=== PATIENT | female | born 1990 | race Caucasian/White ===

== ENCOUNTER 2018-04-10 03:02 | Emergency (ER) | payer OTHER ==
[~2018-04-10] VITALS: Ht 175.3 cm; Wt 91.1 kg
[2018-04-10 03:04] VITALS: BP 133/83
[2018-04-10] MEDS ORDERED: BCP (03:08)
[2018-04-10] MEDS ORDERED: DEXAMETHASONE 4 MG TABLET ONE (04:14)
[2018-04-10] MEDS ORDERED: hydrOXyzine 50MG TABLET ONE (04:14)
[2018-04-10] MEDS ORDERED: DEXAMETHASONE 4 MG TABLET PO ONE (04:30)
== END 2018-04-10 05:33 | disposition home or self-care (01) ==
LOC: ED 05:28
DX: L50.0 Allergic urticaria (principal); R42 Dizziness and giddiness
CPT/HCPCS: 99283; Q0177

== ENCOUNTER 2019-04-24 04:14 | Emergency (ER) | payer OTHER ==
[~2019-04-24] VITALS: Ht 175.3 cm; Wt 78.0 kg
[~2019-04-24 04:14] MED LIST: BCP
--- NOTE | 2019-04-24 04:45 | NUR ---
assessment made. chart up for MD to see.
--- NOTE | 2019-04-24 04:45 | NUR ---
PA at bedside.
[2019-04-24] MEDS ORDERED: DIPH,PERTUSS(ACELL),TET VAC/PF 0.5 ML IM-VACC ONE ×2 (05:00→05:03)
--- NOTE | 2019-04-24 05:14 | NUR ---
tetanus shot given.
--- NOTE | 2019-04-24 05:34 | NUR ---
blood drawn by shrimp pond laborer. patient discharged with instruction. verbalized understanding.
[2019-04-24 05:35] VITALS: BP 127/75
== END 2019-04-24 05:41 | disposition home or self-care (01) ==
LOC: ED 05:35
DX: Z77.21 Contact with and (suspected) exposure to potentially hazardous body fluids (principal)
CPT/HCPCS: 36415; 86706; 86803; 87340; 87389; 90471; 90715

== ENCOUNTER 2019-08-07 01:37 | Emergency (ER) | payer OTHER ==
[~2019-08-07] VITALS: Ht 175.3 cm; Wt 94.0 kg
[2019-08-07 01:40] VITALS: BP 126/75
== END 2019-08-07 02:22 | disposition home or self-care (01) ==
LOC: ED 02:15
DX: S69.91XA Unspecified injury of right wrist, hand and finger(s), initial encounter (principal); W46.1XXA Contact with contaminated hypodermic needle, initial encounter; Y93.89 Activity, other specified; Y92.69 Other specified industrial and construction area as the place of occurrence of the external cause; Y99.8 Other external cause status
CPT/HCPCS: 36415; 86705; 86706; 86803; 87340; 87806; 99283; G0475

== ENCOUNTER 2019-12-24 20:37 | Emergency (ER) | payer OTHER ==
[~2019-12-24] VITALS: Ht 175.3 cm; Wt 85.0 kg
--- NOTE | 2019-12-24 21:28 | NUR ---
PT AMBULATORY TO ROOM AT 2120.
[2019-12-24 21:53] VITALS: BP 103/55
--- NOTE | 2019-12-24 21:54 | NUR ---
PT SITTING IN BED ON PHONE, RESPIRATIONS EVEN AND UNLABORED. CONNECTED TO BP, AND O2 MONITORS. NO SIGNS OF DISTRESS, CALL LIGHT IN REACH, BEDRAILS UP X2. WILL CONTINUE TO MONITOR.
[2019-12-24 22:13] LABS: MICROSCOPIC INDICATED
--- NOTE | 2019-12-24 22:37 | NUR ---
PT CONDITION UNCHANGED. WILL CONTINUE TO MONITOR.
[2019-12-24 22:47] LABS: CLUE CELLS NONE SEEN (NONE SEEN); WET PREP WBCS FEW (FEW)
--- NOTE | 2019-12-24 23:01 | NUR ---
PT LAYING IN BED, ALL NEEDS MET AT THIS TIME.
== END 2019-12-24 23:37 | disposition home or self-care (01) ==
LOC: ED 23:17
DX: O26.892 Other specified pregnancy related conditions, second trimester (principal); Z3A.15 15 weeks gestation of pregnancy
CPT/HCPCS: 76805; 81001; 87086; 87210; 87808; 99284

== ENCOUNTER 2020-04-20 10:07 | Emergency (ER) | payer OTHER ==
[~2020-04-20] VITALS: Ht 175.3 cm; Wt 97.8 kg
[2020-04-20 10:12] VITALS: BP 109/68
--- NOTE | 2020-04-20 10:12 | NUR ---
PROGRAMS MANAGER: PT REPORTS 34 WEEKS . CALLED L&D, SPOKE WITH DOMINGO, L&D REQUEST THAT PT BE CHECKED IN TO ER FOR EVAL DUE TO SOB COMPLAINT AND THEY CAN COME DOWN AND ASSESS PT PER ERP REQUEST.
[2020-04-20 11:14] LABS: BASOPHILS % (AUTO) 0 % (0-1); EOSINOPHILS % (AUTO) 2 % (1-7); LYMPHOCYTES % (AUTO) 13 % (22-44); MEAN CORPUSCULAR HEMOGLOBIN 31.9 pg (27.0-34.8); MEAN CORPUSCULAR HGB CONC 34.7 g/dL (32.4-35.8); MEAN PLATELET VOLUME 8.7 fL (7.4-10.4); MONOCYTES % (AUTO) 7 % (2-9); NEUTROPHILS % (AUTO) 78 % (42-75); PLATELET COUNT 256 x10^3/uL (130-400); RED BLOOD COUNT 3.71 x10^6/uL (3.82-5.3); RED CELL DISTRIBUTION WIDTH 12.8 % (9.6-15.2)
[2020-04-20 11:17] LABS: MD NO
[2020-04-20 11:27] LABS: ALANINE AMINOTRANSFERASE 33 U/L (12-78); ALBUMIN 2.8 g/dL (3.4-5.0); ANION GAP 6 mmol/L (5-15); CHLORIDE 108 mmol/L (98-107); CREATININE 0.73 mg/dL (0.55-1.02)
[2020-04-20 11:29] LABS: ALKALINE PHOSPHATASE 77 U/L (45-117); BILIRUBIN,TOTAL 0.2 mg/dL (0.2-1.0); TOTAL PROTEIN 6.6 g/dL (6.4-8.2)
== END 2020-04-20 13:30 | disposition home or self-care (01) ==
LOC: ED 13:28
DX: O26.893 Other specified pregnancy related conditions, third trimester (principal); Z20.828 Contact with and (suspected) exposure to other viral communicable diseases; R00.2 Palpitations; R06.02 Shortness of breath; Z3A.32 32 weeks gestation of pregnancy; Z90.89 Acquired absence of other organs
CPT/HCPCS: 71045; 80053; 85025; 87635; 93005; 99285

== ENCOUNTER 2021-01-24 14:38 | Emergency (ER) | payer OTHER ==
[~2021-01-24] VITALS: Ht 175.3 cm; Wt 80.1 kg
[2021-01-24] MEDS ORDERED: PROPARACAINE OPHTH 0.5%, 15ML ONE (14:54)
[2021-01-24] MEDS ORDERED: FLUORESCEIN OPHTHALMIC 1 MG STRIP ONE (14:54)
[2021-01-24] MEDS ORDERED: FLUORESCEIN OPHTHALMIC 1 MG STRIP RIGHTEYE ONE (15:00)
[2021-01-24] MEDS ORDERED: PROPARACAINE OPHTH 0.5%, 15ML RIGHTEYE ONE (15:00)
--- NOTE | 2021-01-24 15:06 | NUR ---
[phone]: CHRISTIANO (SISTER) WOULD LIKE TO BE CONTACTED/UPDATED Addendum: 01/24/21 at 1508 by MARY DISREGARD PRIOR NOTE
[2021-01-24 15:21] VITALS: BP 130/81
== END 2021-01-24 15:45 | disposition home or self-care (01) ==
LOC: ED 15:42
DX: K75.9 Inflammatory liver disease, unspecified (principal); Z21 Asymptomatic human immunodeficiency virus [HIV] infection status; H57.11 Ocular pain, right eye
CPT/HCPCS: 36415; 86803; 87340; 87806; 99283; G0475